=== PATIENT | female | born 1995 | race African-American/Black ===

== ENCOUNTER 2022-08-25 08:31 | Emergency (ER) | payer OTHER ==
[~2022-08-25] VITALS: Ht 170.2 cm; Wt 86.2 kg
[2022-08-25] MEDS ORDERED: DOXYCYCLINE HY100 MG PO (08:57)
== END 2022-08-25 09:04 | disposition home or self-care (01) ==
LOC: FSED 08:56
DX: L91.8 Other hypertrophic disorders of the skin (principal)
CPT/HCPCS: 99283